=== PATIENT | female | born 1980 | race African-American/Black ===

== ENCOUNTER 2021-09-07 07:59 | Inpatient (IN) ==
[2021-09-07] MEDS ORDERED: ONDANSETRON 4 MG/2 ML VIAL ONE (08:31)
[2021-09-07] MEDS ORDERED: HYDROmorphone 2 MG/1 ML VIAL ONE (08:31)
[2021-09-07] MEDS ORDERED: SODIUM CHLORIDE 0.9% 1,000 ML IV STA (08:48)
[2021-09-07] MEDS ORDERED: HYDROmorphone 2 MG/1 ML VIAL IV STA ×3 (08:48→12:14)
[2021-09-07] MEDS ORDERED: ONDANSETRON 4 MG/2 ML VIAL IV STA (08:48)
[2021-09-07 09:39] LABS: Albumin 3.9 G/DL (3.4-5.0); Bilirubin,Total 0.6 MG/DL (0.20-1.00); Calcium 9.6 MG/DL (8.5-10.1); Osmolality,Calculated 272.8 MOS/KG (273-304); Potassium 5.5 MMOL/L (3.5-5.1); Total Protein 7.9 G/DL (6.4-8.2)
[2021-09-07 09:56] LABS: Basophils # 0.1 10*3/uL (0.0-0.2); Basophils % 0.3 % (0.0-0.8); Eosinophils % 0.1 % (0.00-10.9); Hematocrit 48.1 VOL% (35.7-47.0); Hemoglobin 16.1 GM/DL (12.0-16.0); Immature Granulocytes % 0.5 %; Immature Granulocytes Absolute 0.08 #; Lymphocytes % 12.7 % (21.3-54.2); Mean Corpuscular HGB Conc 33.5 GM/DL (32-36); Mean Corpuscular Volume 95.2 FL (87-102); Mean Platelet Volume 10.6 FL (9.6-12.0); Monocytes % 6.5 % (1.7-12.7); Neutrophils % 79.9 % (38.7-73.9); Platelet Count 208 T/CUMM (130-400); Red Blood Count 5.05 MC/CUMM (3.8-5.5); Red Cell Distribution Width 12.8 % (9.3-17.3); White Blood Count 16.1 T/CUMM (4-12)
[2021-09-07 11:10] LABS: Polychromasia Slight
[2021-09-07 11:11] LABS: Platelet Estimate Normal; Stomatocytes Few
[2021-09-07 12:55] LABS: RBC,Urine 2 /HPF (0-4); Squamous Epithelial Cell,Urine Occasional /HPF (0-10)
[2021-09-07] MEDS ORDERED: GLUCAGON 1 MG VIAL IM PRN (12:56)
[2021-09-07] MEDS ORDERED: ACETAMINOPHEN 325 MG TABLET PO PRN (12:57)
[2021-09-07] MEDS ORDERED: NICOTINE 21 MG/24 HR PATCH TRANSDERM PRN (12:57)
[2021-09-07] MEDS ORDERED: HYDROmorphone 2 MG/1 ML VIAL IV PRN (12:58)
[2021-09-07] MEDS ORDERED: DEXTROSE 10% 250 ML BAG IV PRN (13:00)
[2021-09-07 13:01] LABS: Glucose,Urine (UA) Negative (Negative); Ketones,Urine Negative (Negative); Protein,Urine 2+ mg/dL (Negative); Urine Appearance Clear (Clear); Urine Color Yellow (Yellow); Urine Specific Gravity 1.015 (1.001-1.035)
[2021-09-07 13:02] LABS: Bilirubin,Urine Negative (Negative); Blood, Urine Moderate mg/dL (Negative); Nitrite,Urine Negative (Negative); Urine Urobilinogen 0.2 eU/dL (<2.0)
[2021-09-07] MEDS ORDERED: SODIUM CHLORIDE 0.9% 1,000 ML IV ONE (13:02)
[2021-09-07 13:32] LABS: INR 0.9; PT Patient Result 10.4 SECS (10.5-12.0); Partial Thromboplastin Time 20.8 SECS (23.8-32.1)
[2021-09-07 14:03] LABS: Barbiturates Screen,Urine Negative (Negative); Benzodiazepines Screen,Urine Negative (Negative); Cannabinoid Screen,Urine Positive (Negative); Opiate Screen,Urine Positive (Negative); Phencyclidine Screen,Urine Negative (Negative)
[2021-09-07] MEDS: SODIUM CHLORIDE 0.9% 1,000 ML IV SCH (14:14)
[2021-09-07 16:18] LABS: Calcium 8.9 MG/DL (8.5-10.1); Osmolality,Calculated 274.7 MOS/KG (273-304); Potassium 4.1 MMOL/L (3.5-5.1)
[2021-09-07] MEDS ORDERED: HYDROmorphone 1 MG/1 ML SYRINGE IV PRN (16:30)
[2021-09-07] MEDS: hydrALAZINE 20 MG/1 ML VIAL IV PRN (16:41)
[2021-09-07] MEDS: HYDROmorphone 1 MG/1 ML SYRINGE IV PRN ×2 (20:20→23:48)
[2021-09-07] MEDS: ONDANSETRON 4 MG/2 ML VIAL IV PRN (22:29)
[2021-09-08] MEDS: HYDROmorphone 1 MG/1 ML SYRINGE IV PRN ×2 (02:52→06:03)
[2021-09-08] MEDS: SODIUM CHLORIDE 0.9% 1,000 ML IV SCH ×2 (04:42→23:23)
[2021-09-08 05:41] LABS: Basophils # 0.1 10*3/uL (0.0-0.2); Basophils % 0.3 % (0.0-0.8); Eosinophils % 0.1 % (0.00-10.9); Hematocrit 44.5 VOL% (35.7-47.0); Hemoglobin 14.5 GM/DL (12.0-16.0); Immature Granulocytes % 2.9 %; Immature Granulocytes Absolute 1.01 #; Lymphocytes # 1.8 10*3/uL (1.4-4.0); Mean Corpuscular HGB Conc 32.6 GM/DL (32-36); Mean Corpuscular Volume 96.9 FL (87-102); Mean Platelet Volume 10.6 FL (9.6-12.0); Monocytes % 8.8 % (1.7-12.7); Neutrophils % 82.9 % (38.7-73.9); Platelet Count 199 T/CUMM (130-400); Red Blood Count 4.59 MC/CUMM (3.8-5.5); Red Cell Distribution Width 13.2 % (9.3-17.3); White Blood Count 34.8 T/CUMM (4-12)
[2021-09-08 06:00] LABS: Bilirubin,Total 0.5 MG/DL (0.20-1.00); Calcium 8.7 MG/DL (8.5-10.1); Osmolality,Calculated 266.2 MOS/KG (273-304); Potassium 4.4 MMOL/L (3.5-5.1)
[2021-09-08] MEDS: ONDANSETRON 4 MG/2 ML VIAL IV PRN (06:00)
[2021-09-08 06:15] LABS: Anisocytosis Slight; Band Neutrophils 8 % (0-10); Lymphocytes 6 % (20-55); Platelet Estimate Normal; Segmented Neutrophils 77 % (50-85); Total Cells Counted 100
[2021-09-08 06:16] LABS: Macrocytosis 1+
[2021-09-08] MEDS: PIPERACILLIN/TAZOBACTAM 3,375 MG in SODIUM CHLORIDE 0.9% 100 ML IV SCH ×2 (09:53→18:33)
[2021-09-08] MEDS ORDERED: MORPHINE 2 MG/1 ML SYRINGE IV PRN (10:08)
[2021-09-08] MEDS: MORPHINE 4 MG/1 ML VIAL IV PRN ×3 (12:35→23:19)
[2021-09-09] MEDS: PIPERACILLIN/TAZOBACTAM 3,375 MG in SODIUM CHLORIDE 0.9% 100 ML IV SCH ×3 (03:12→18:29)
[2021-09-09] MEDS: MORPHINE 4 MG/1 ML VIAL IV PRN ×2 (04:04→11:18)
[2021-09-09] MEDS: SODIUM CHLORIDE 0.9% 1,000 ML IV SCH ×3 (06:26→14:07)
[2021-09-09 06:30] LABS: Basophils # 0.1 10*3/uL (0.0-0.2); Basophils % 0.3 % (0.0-0.8); Hematocrit 41.3 VOL% (35.7-47.0); Immature Granulocytes % 1.5 %; Immature Granulocytes Absolute 0.44 #; Lymphocytes # 1.7 10*3/uL (1.4-4.0); Lymphocytes % 5.7 % (21.3-54.2); Mean Corpuscular HGB Conc 33.9 GM/DL (32-36); Mean Corpuscular Volume 94.3 FL (87-102); Monocytes % 6.7 % (1.7-12.7); Neutrophils % 85.8 % (38.7-73.9); Platelet Count 184 T/CUMM (130-400); Red Blood Count 4.38 MC/CUMM (3.8-5.5); White Blood Count 30.1 T/CUMM (4-12)
[2021-09-09 06:51] LABS: Albumin 2.3 G/DL (3.4-5.0); Calcium 8.7 MG/DL (8.5-10.1); Osmolality,Calculated 259.8 MOS/KG (273-304); Potassium 4.4 MMOL/L (3.5-5.1); Total Protein 6.8 G/DL (6.4-8.2)
[2021-09-09 07:01] LABS: Hypochromia 1+; Lymphocytes 4 % (20-55); Segmented Neutrophils 91 % (50-85); Total Cells Counted 100
[2021-09-09 07:02] LABS: Microcytosis Slight; Platelet Estimate Adequate
[2021-09-09] MEDS: busPIRone 5 MG TABLET PO SCH ×2 (08:44→21:05)
[2021-09-09] MEDS ORDERED: NALOXONE 0.4 MG/ML VIAL IV PRN (14:57)
[2021-09-09] MEDS ORDERED: HYDROmorphone PCA 30 MG/30 ML SYRINGE IV SCH (15:00)
[2021-09-10] MEDS: SODIUM CHLORIDE 0.9% 1,000 ML IV SCH ×2 (01:42→21:14)
[2021-09-10] MEDS: PIPERACILLIN/TAZOBACTAM 3,375 MG in SODIUM CHLORIDE 0.9% 100 ML IV SCH ×3 (01:43→19:22)
[2021-09-10 08:52] LABS: Basophils % 0.2 % (0.0-0.8); Eosinophils % 0.1 % (0.00-10.9); Hematocrit 37.6 VOL% (35.7-47.0); Hemoglobin 12.9 GM/DL (12.0-16.0); Immature Granulocytes % 0.9 %; Immature Granulocytes Absolute 0.18 #; Lymphocytes # 1.7 10*3/uL (1.4-4.0); Lymphocytes % 8.3 % (21.3-54.2); Mean Corpuscular HGB Conc 34.3 GM/DL (32-36); Mean Corpuscular Volume 93.1 FL (87-102); Mean Platelet Volume 10.6 FL (9.6-12.0); Monocytes % 5.8 % (1.7-12.7); Neutrophils % 84.7 % (38.7-73.9); Platelet Count 186 T/CUMM (130-400); Red Blood Count 4.04 MC/CUMM (3.8-5.5); White Blood Count 21.1 T/CUMM (4-12)
[2021-09-10] MEDS: busPIRone 5 MG TABLET PO SCH ×2 (08:55→21:14)
[2021-09-10] MEDS: hydrALAZINE 20 MG/1 ML VIAL IV PRN (08:56)
[2021-09-10 09:13] LABS: Hypochromia Slight; Lymphocytes 9 % (20-55); Microcytosis Slight; Platelet Estimate Adequate; Segmented Neutrophils 86 % (50-85); Total Cells Counted 100
[2021-09-10 09:27] LABS: Albumin 2.1 G/DL (3.4-5.0); Bilirubin,Total 1.1 MG/DL (0.20-1.00); Calcium 8.9 MG/DL (8.5-10.1); Osmolality,Calculated 263.5 MOS/KG (273-304); Potassium 3.9 MMOL/L (3.5-5.1); Total Protein 6.6 G/DL (6.4-8.2)
[2021-09-10] MEDS ORDERED: MORPHINE 4 MG/1 ML VIAL IV ONE (10:00)
[2021-09-10] MEDS ORDERED: MORPHINE 2 MG/1 ML SYRINGE IV PRN ×2 (14:00→18:27)
[2021-09-10 14:14] LABS: Hepatitis B Core IgM Quant 0.14 Index; Hepatitis B Surface Ag Quant 0.24 Index; Hepatitis B Surface Ag Result Non-Reactive (NonReactive); Hepatitis C Virus Ab Quant 0.07 Index; Hepatitis C Virus Ab Result Non-Reactive (NonReactive)
[2021-09-10] MEDS: GABAPENTIN 100 MG CAPSULE PO SCH (21:14)
[2021-09-10] MEDS ORDERED: SIMETHICONE CHEW 125 MG TABLET PO PRN (23:57)
[2021-09-11] MEDS: PIPERACILLIN/TAZOBACTAM 3,375 MG in SODIUM CHLORIDE 0.9% 100 ML IV SCH ×3 (02:39→18:04)
[2021-09-11] MEDS: SODIUM CHLORIDE 0.9% 1,000 ML IV SCH ×3 (03:49→21:48)
[2021-09-11 06:04] LABS: Basophils # 0.1 10*3/uL (0.0-0.2); Basophils % 0.4 % (0.0-0.8); Eosinophils # 0.2 10*3/uL (0.0-0.87); Eosinophils % 1.1 % (0.00-10.9); Hematocrit 36.7 VOL% (35.7-47.0); Hemoglobin 12.7 GM/DL (12.0-16.0); Immature Granulocytes % 0.8 %; Immature Granulocytes Absolute 0.12 #; Lymphocytes # 2.6 10*3/uL (1.4-4.0); Lymphocytes % 16.9 % (21.3-54.2); Mean Corpuscular HGB Conc 34.6 GM/DL (32-36); Mean Platelet Volume 10.5 FL (9.6-12.0); Monocytes % 8.2 % (1.7-12.7); Neutrophils % 72.6 % (38.7-73.9); Platelet Count 222 T/CUMM (130-400); Red Blood Count 3.99 MC/CUMM (3.8-5.5); White Blood Count 15.2 T/CUMM (4-12)
[2021-09-11 06:11] LABS: Osmolality,Calculated 267.1 MOS/KG (273-304); Potassium 3.6 MMOL/L (3.5-5.1)
[2021-09-11] MEDS: busPIRone 5 MG TABLET PO SCH ×2 (09:22→20:29)
[2021-09-11 11:01] LABS: Protein C Activity Plasma 79 % (70 - 150); Protein S Ag (Free) 88 % (50 - 160)
[2021-09-11] MEDS: GABAPENTIN 100 MG CAPSULE PO SCH (20:29)
[2021-09-11 22:02] LABS: Phospholipid Ab IgM, S < 9.4 MPL
[2021-09-11 22:02] LABS: DRVVT Screen Ratio 1.09 ratio (<1.20); INR 1.2 (0.9-1.1)
[2021-09-12] MEDS: PIPERACILLIN/TAZOBACTAM 3,375 MG in SODIUM CHLORIDE 0.9% 100 ML IV SCH ×2 (02:13→09:22)
[2021-09-12 06:05] LABS: Basophils % 0.3 % (0.0-0.8); Eosinophils # 0.3 10*3/uL (0.0-0.87); Eosinophils % 2.6 % (0.00-10.9); Hematocrit 35.7 VOL% (35.7-47.0); Immature Granulocytes Absolute 0.11 #; Lymphocytes # 2.4 10*3/uL (1.4-4.0); Lymphocytes % 20.7 % (21.3-54.2); Mean Corpuscular HGB Conc 33.6 GM/DL (32-36); Mean Corpuscular Volume 94.4 FL (87-102); Mean Platelet Volume 10.6 FL (9.6-12.0); Monocytes % 11.1 % (1.7-12.7); Neutrophils % 64.3 % (38.7-73.9); Platelet Count 215 T/CUMM (130-400); Red Blood Count 3.78 MC/CUMM (3.8-5.5); Red Cell Distribution Width 13.1 % (9.3-17.3); White Blood Count 11.4 T/CUMM (4-12)
[2021-09-12 06:22] LABS: Calcium 8.2 MG/DL (8.5-10.1); Osmolality,Calculated 271.7 MOS/KG (273-304); Potassium 3.6 MMOL/L (3.5-5.1)
[2021-09-12] MEDS: busPIRone 5 MG TABLET PO SCH (09:22)
[2021-09-12 11:40] VITALS: BP 154/91
[2021-09-12 12:35] LABS: Beta-2 Glycoprotein 1 IgA Ab < 9.4 U/mL
[2021-09-12 13:51] LABS: Antinuclear Ab, S 0.4 U
[2021-09-13 09:01] LABS: PTNT Reviewed By SEE COMMENTS
[2021-09-13 09:10] LABS: F5DNA Reviewed By SEE COMMENTS; Factor V Leiden (R506Q) Mutati Negative (Negative)
[2021-09-13 22:11] LABS: Protein C, Total Antigen 88 % (63-153)
== END 2021-09-12 12:13 | disposition home or self-care (01) | DRG 468 ==
LOC: N.ED 07:59 → N.5E 12:56 → SUATTDRO 12:56 → N.5E 15:44
PROVIDERS: ADMIT Internal Medicine; ATTEND Internal Medicine